=== PATIENT | female | born 1990 | race Caucasian/White ===

== ENCOUNTER 2020-06-05 09:30 | Outpatient (RCR) | payer SELFPAY ==
[2020-01-02 10:21] VITALS: BMI 21.9
--- NOTE | 2020-06-26 11:27 | HP.PT.NRP ---
SLADE Montes AARON was seen in my office for initial evaluation on . The following Plan of Care was established for this patient: This patient was last seen in our office . Pertinent comments regarding their Physical therapy will appear below: Self pay -dn- dc chart At this point I will be discontinuing this patient from physical therapy. I would be happy to see this patient again in the future if found appropriate by the physician. Thank you! JEZ ChenT
== END 2020-06-05 19:00 | disposition home or self-care (01) ==
LOC: PT 09:30
DX: R69 Illness, unspecified (principal)

== ENCOUNTER 2023-10-19 13:30 | Outpatient (RCR) | payer SELFPAY ==
--- NOTE | 2023-07-14 08:49 | HP.PT.NRP ---
Patient Information Patient Information: SLADE WALKER was seen in my office for initial evaluation on . The following Plan of Care was established for this patient: Last Seen Last Seen: This patient was last seen in our office . Pertinent comments regarding their Physical therapy will appear below: Dry needling d/c At this point I will be discontinuing this patient from physical therapy. I would be happy to see this patient again in the future if found appropriate by the physician. Thank you! JEZ ChenT
== END 2023-10-19 19:00 | disposition home or self-care (01) ==
LOC: PT 13:30
DX: G43.909 Migraine, unspecified, not intractable, without status migrainosus (principal)

== ENCOUNTER 2024-01-12 12:00 | Outpatient (RCR) | payer SELFPAY | END 2024-01-12 19:00 | disposition home or self-care (01) | LOC: PT 12:00 | PROVIDERS: PCP Internal Medicine | DX: Z00.00 Encounter for general adult medical examination without abnormal findings (principal) ==

== ENCOUNTER 2024-01-26 05:57 | Day surgery (SDC) | payer SELFPAY ==
[2024-01-26] VITALS (16 sets, daily range): BP systolic 95–110; BP diastolic 56–70; PULSE 60–83; RESP 16; TEMP 36.6–37.6; O2SAT 94–100; BMI 20.9
[2024-01-26] MEDS: Lactated Ringers 1,000 ML 15 ML IV (06:35)
[2024-01-26 06:36] LABS: Internal QC Validated? YES +Cl - CLEAR BKGD; Pregnancy, Urine Negative Negative
--- NOTE | 2024-01-26 07:17 | PCM.PRE.AN2 ---
ASA Classification* ASA Classification ASA Classification: 2 Assessment & Plan Anesthesia* Anesthesia Assessment Anesthesia Assessment: Discussed sedation and/or anesthesia options, risks, benefits, and alternatives with patient/parents/legal guardian/POA. Questions invited. The patient/parents/legal guardian/POA seems to understand and agrees to proceed with anesthesia plan. Reviewed the physical assessment, medical history, allergy history and patient home medications list prior to surgery/procedure/anesthetic and documented any changes. Performed airway and anesthesia risk assessments. 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 When Was Last Pacemaker Check QUESTION #4 FULL TEXT: You/Your Family Experience fever (hyperthermia) with Anesthesia Last Oral Intake Last Oral intake: Last Oral Intake NPO since Meds taken in AM with sips of water? Meds patient instructed to take am of surgery PONV PONV - chamber worker: PONV - chamber worker Female Yes 12/30/23 13:20 HX of Motion Sickness Yes 12/30/23 13:20 HX of N/V After Surgery Yes 12/30/23 13:20 Non-Smoker Yes 12/30/23 13:20 Duration of Surgery greater Yes 12/30/23 13:20 than 60 minutes Number of Risk Factors 5 12/30/23 13:20 PONV Score Severe Risk 12/30/23 13:20 Height & Weight Height & Weight: Anesthesia: Height & Weight Height 5 ft 6 in 01/26/24 06:22 Weight: 59 kg 01/26/24 06:22 Body Mass Index (BMI) 20.9 01/26/24 06:22 Respiratory Assessment Respiratory Assessment - chamber worker: Respiratory Tract Infection Hx - chamber worker Hx Respiratory Tract Infection No 12/30/23 13:20 STOP Sleep Apnea STOP Sleep Apnea - chamber worker: STOP Sleep Apnea - chamber worker Hx Hypertension No 12/30/23 13:20 Hx Sleep Apnea No 12/30/23 13:20 CPAP BIPAP Do you snore loudly (louder No 12/30/23 13:20 than talking or can be heard Do you often feel tired/ No 12/30/23 13:20 fatigued/ sleepy during daytime? Has anyone observed you stop No 12/30/23 13:20 breathing during sleep? STOP Results Negative 12/30/23 13:20 QUESTION #5 FULL TEXT : Do you snore loudly (louder than talking or can be heard through closed doors)? 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 Specify any problems Hx of Preganancy in last 3 No 12/30/23 13:20 Months Nurse Filling Out Transfusion VLEHNANCY 12/30/23 13:20 & Questions: Date: 12/30/23 12/30/23 13:20 Time: 13:33 12/30/23 13:20 Patient unable to answer at this time (ie. confused, unrespo /Reproduction History /Reproductive History - chamber worker: /Reproductive Hx- chamber worker Hx Now No 12/30/23 13:20 Gestational Age (in weeks): EDC: Hx Hx Para Hx Section SAB No 12/30/23 13:20 Active Medications Active Medications: Current Medications Generic Name Dose Route Start Last Admin Trade Name Freq PRN Reason Stop Dose Admin Epinephrine HCl 30 ml 01/26/24 07:15 Epinephrine Nasal 0.1% 30 Ml Bottle NASAL PREOP SHIRLENE Cefazolin Sodium 2 gm/ Sodium 110 mls @ 150 mls/hr 01/26/24 07:30 Chloride IV 01/26/24 08:13 PREOP ONE Lactated Ringer's 1,000 mls @ 15 mls/hr 01/26/24 06:15 01/26/24 06:35 IV 15 mls/hr .Q48H SHIRLENE Administration PFSH Medical History MTHFR gene mutation ADHD Anxiety Hepatitis Migraine headache Dietary restriction Non-smoker History of echocardiogram History of back problems History of autoimmune disease Varicose veins during , antepartum Liver disease Hypoglycemia Bilateral headaches Home Medications ?Medication ?Instructions ?Recorded ?Last Taken ?Type azathioprine 50 mg tablet (Imuran) 50 mg PO QDAY 02/20/18 Unknown History cholecalciferol (vitamin D3) 25 5,000 unit PO DAILY 09/27/23 Unknown History mcg (1,000 unit) capsule lactobacillus combination no.9 4 4,000 mmu cells PO DAILY 09/27/23 Unknown History billion cell capsule (Adult 50 Plus Probiotic) magnesium 200 mg tablet 200 mg PO DAILY 09/27/23 Unknown History milk thistle 150 mg capsule 750 mg PO DAILY 09/27/23 Unknown History collagen (bovine) 100 % topical 1 applic topical DAILY 12/07/23 Unknown History powder HORMONE [id number] 1 cap PO DAILY 12/30/23 Unknown History EXTRACT hdxnsbvd-9-EOX-lemon balm xt 3 tab PO BID PRN 12/30/23 Unknown History vitamin B complex 1 cap PO DAILY 12/30/23 Unknown History cephalexin 500 mg capsule 500 mg PO BID #14 caps 01/11/24 01/25/24 Rx Allergy/AdvReac Type Severity Reaction Status Date / Time corn Allergy Mild Other Verified 01/26/24 06:21 egg Allergy Mild Other Verified 01/26/24 06:21 lactase (From Dairy Aid) Allergy Mild Other Verified 01/26/24 06:21 nut - unspecified (nuts) Allergy Mild Other Verified 01/26/24 06:21 gluten Allergy Abd Verified 01/26/24 06:21 cramps/diarrhea Family History Mother Asthma Cervical cancer Sister Asthma Cervical cancer Grandfather Colon cancer Depression Skin cancer Other CVA (cerebral vascular accident) Heart disease Surgical History History of liver biopsy [place] teeth extracted Social History Smoking Status: Never smoker alcohol intake: never substance use type: does not use what type of physical activity do you participate in: walking, aerobics and weight training frequency: 5-6 times per week additional social history: denies vaping, denies marijuana use, denies edibles, denies aspirin use, uses ibuprofen as needed Review of Systems (Anesthesia) ROS Narrative System reviewed and no additional complaints, except as documented.
--- NOTE | 2024-01-26 07:18 | PCM.HP.BLA ---
History and Physical Date of Admission: 01/26/24 The patient is examined. There are no changes to the H&P dated 01/06/24. Informed consent was obtained. She presents for cosmetic bilateral breast reduction. Assessment & Plan Assessment/Plan (1) Encounter for cosmetic surgery: (2) Breast hypertrophy: PLAN: Plan For bilateral breast reduction
--- NOTE | 2024-01-26 07:30 | BR_PTH ---
PATIENT: SLADE WALKER LOC: [facility] [place] U[place][id number] AGE/SX: 33/F ROOM: RE01/26/[address]: Dr. Magnolia Jamil MD : 1990 BED: DIS: 01/26/2024 SPEC #: [id number] RECD: 01/26/24 13:23 STATUS: LUPE HANDJax #: [id number] PRECIOUS: 01/26/24 07:[address]: Magnolia Jamil DEPT: SURGICAL PATHOLOGY RECD BY: Antwan Harrell ENTERED: 01/26/24 13:40 SP TYPE: MAMOPLASTY OTHR DR: Dr. Rose Sun MD Tissues: A - Right breast, NOS B - Left breast, NOS Procedures: Surgery Specimen Level IV HEADER OPERATION: Bilateral breast reduction PRE-OP DIAGNOSIS: Breast hypertrophy and ptosis TISSUE SUBMITTED: A- Right breast tissue (106 gm), B- Left breast tissue (100gm) MICROSCOPIC DIAGNOSIS A. Right breast, breast reduction mammoplasty: Fragments of benign breast tissue (106gm). Skin- no pathologic diagnosis. B. Left breast tissue, breast reduction mammoplasty: Fragments of benign breast tissue (100gm). Skin- no pathologic diagnosis. ZION/ 01/30/2024 MICROSCOPIC DESCRIPTION Slides are reviewed. GROSS DESCRIPTION A - Received in fixative is one container labeled with the patient's name and designated right breast tissue. The specimen consists of multiple pieces of fibroadipose tissue with a few of the pieces showing carter-white skin measuring in aggregate 14.0 x 11.0 x 3.0 cm. Weighed in OR at 106gm. No skin lesion is identified. Sections reveal yellow adipose cut surfaces mixed with focal fibrous areas. No mass lesion is identified. Hvac Maintenance Technician sections are submitted in six cassettes. Cassette 1 contains the skin piece. B - Received in fixative is one container labeled with the patient's name and designated left breast tissue. The specimen consists of multiple pieces of fibroadipose tissue with a few of the pieces showing carter-white skin measuring in aggregate 13.0 x 12.0 x 3.0 cm. Weighed in OR at 100gm. No skin lesion is identified. Sections reveal yellow adipose cut surfaces mixed with focal fibrous areas. No mass lesion is identified. Hvac Maintenance Technician sections are submitted in six cassettes. Cassette 1 contains the skin piece. / ZION: 01/27/2024 TC:5 CPT:67023b9
[2024-01-26] MEDS: Cefazolin 2 GM in 0.9% Normal Saline (100mL Bag) 100 ML IV (07:35)
[2024-01-26] MEDS: Methylene Blue 1% 100 MG/10 ML VIAL (08:12)
[2024-01-26] MEDS: EPINEPHrine Nasal 0.1% 30 ML Bottle NASAL (08:12)
[2024-01-26] MEDS: Gentamicin 80 MG/2 ML Vial (08:12)
[2024-01-26] MEDS: Bupivacaine 0.25% 30 ML Vial (12:01)
--- NOTE | 2024-01-26 12:13 | EX.PCM.DISCH ---
Discharge Instructions Dressing / Incision Additional Dressing/Incision Instructions:: Follow the instructions given in the office. Follow Up Care Please Follow Up With: Magnolia Jamil MD When: In 1 week Test Results: Test results from this visit will be discussed in further detail at your follow-up appointment, if applicable. Discharge Plan Admission Attending Provider: Magnolia Jamil Primary Care Provider: Rose Sun Instructions Print Language: Citizen Of [place] Discharge Orders/Prescriptions Prescriptions: No Action azathioprine [Imuran] 50 mg tablet 50 mg PO QDAY magnesium 200 mg tablet 200 mg PO DAILY milk thistle 150 mg capsule 750 mg PO DAILY Rx Instructions: give with meal/snack cholecalciferol (vitamin D3) 25 mcg (1,000 unit) capsule 5,000 unit PO DAILY Adult 50 Plus Probiotic 4 billion cell capsule 4,000 mmu cells PO DAILY collagen (bovine) 100 % powder 1 applic topical DAILY Patient Comments: POWDER MIXED WITH WATER-NOT FOR A DRESSING 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 Magnolia Jamil Basic Metabolic Profile (BMP) (Routine) Timeframe: 20240106 Facility: [facility] [place] - Location: Laboratory Ordered By: Dr. Magnolia Jamil CBC-Complete Blood Cnt No Diff (Routine) Timeframe: 20240106 Facility: [facility] [place] - Location: Laboratory Ordered By: Dr. Magnolia Jamil Liver Profile (Routine) Timeframe: 20240106 Facility: [facility] [place] - Location: Laboratory Ordered By: Dr. Chito Medley Prothrombin Time w/INR (Routine) Timeframe: 20240106 Facility: [facility] [place] - Location: Laboratory Ordered By: Dr. Magnolia Jamil Referrals / Follow Up: Rose Sun MD [Primary Care Provider] - Disposition Disposition (needs filled in before D/C Order can be placed): Home, Self Care
--- NOTE | 2024-01-26 12:15 | PCM.POST.ANE ---
Anesthesia: Postop Eval I Current Vital Signs Temperature: 97.9 F Pulse Rate: 80 Blood Pressure: 105/60 Respiratory Rate: 16 Pulse Ox: 95 Oxygen Delivery Method: Room Air Assessment Airway patent: Yes Spontaneous unlabored respirations: Yes Mental status: Awake and Calm nausea: No Vomiting: No Anesthesia Complication: No Fluid Hydration Crystalloid volume administer (ml): 1,600 Total IV fluid infused: 1,600 Progress Note Anesthesia document: Postop Eval 1 completed: Yes
--- NOTE | 2024-01-26 12:18 | OP.PCM_ITS ---
Problems Associated Problem List Diagnoses (1) Encounter for cosmetic surgery: (2) Breast hypertrophy: Report of Operation Date of Procedure: 01/26/24 Pre-Operative Diagnosis: Breast hypertrophy and ptosis; elective cosmetic surgery Post-Operative Diagnosis: Same Surgery/Procedure Performed:: Bilateral breast reduction (right-106 g; left?100 g) Surgeon: Magnolia Jamil tandem operator: CLARENCE DAVENPORTcustomer service professional Type of Anesthesia: General Specimen's removed: Breast tissue Drains: None Estimated Blood Loss (mL): 30 cc Description of Procedure: The patient presents for elective breast reduction. The procedure been thoroughly reviewed with the patient including the expected pre-, intra-, postoperative course. The potential risk and complications of surgery have been reviewed which include but are not exclusive of bleeding, infection, pain, numb ness, asymmetry, scar tissue, skin necrosis, the need for further surgery, inability to breast-feed, DVT, and even . She is marked in the preop holding area prior to surgery. The patient is brought to the operating room and placed under general anesthesia in the supine position. Care is taken to pad all pressure points, insert a Mackenzie catheter, sequential compression stockings, and a warming blanket. She is prepped and draped in the usual sterile fashion. We initially began by incising all the incisions. Following this, the pedicle area is de-epithelialized. The medial and lateral at the inferior aspects of the breast are then removed using argon coagulation. Following this, the pedicle was from the upper flap. The upper flap is then dissected cephalad allowing room to accommodate the pedicle. The pedicle is then trimmed in order to allow it to comfortably fit beneath the upper flap. The wound is irrigated with antibiotic solution and checked for hemostasis which is controlled with cautery. The breast is then infolded and tacked together using silk suture and skin clips. With a satisfactory size and shape noted, would begin to close the incisions. Vicryl sutures were used to initially tacked the incisions together. The incisions were then approximated in 3 layers using a 3 oh STRATAFIX suture. Approximately 4 cm above the inframammary crease, the nipple areola is brought out through an opening. It is tacked into position with interrupted nylon suture. Further refinement the closure is done with a strata fix suture in a subcuticular fashion. The identical procedure was performed on the opposite side. The patient is periodically checked for size and symmetry. The wounds are then dressed with Xeroform and fluff gauze. She is placed in a surgery bra. She tolerated the procedure well was taken to the recovery area in an awake and stable condition. Needle and sponge counts are correct. Complications None Admit VTE Documentation VTE Mechan Device Prophylaxis: SCD's
--- NOTE | 2024-01-26 13:28 | POSTOPAN2_ITS ---
Anesthesia Postop Eval I Sum Postop Eval Completion status Anesthesia document: Postop Eval 1 completed: Yes Anesthesia Postop Eval I Summary Anesthesia Postop Eval I Summary: Anesthesia Postop Eval I: Assessment Summary Airway patent Yes 01/26/24 12:16 [email or web address] Spontaneous unlabored Yes 01/26/24 12:16 ENVELOPE [email or web address] respirations Mental status Awake,Calm 01/26/24 12:16 ENVELOPE [email or web address] nausea No 01/26/24 12:16 ENVELOPE [email or web address].SCHR Vomiting No 01/26/24 12:16 [facility] Anest[facility] Postop Eval I: Fluid Summary Crystalloid volume administer 1,600 01/26/24 12:16 ENVELOPE [email or web address].SCHR (ml) Colloids volume administered ( ml) Blood Product volume administered (ml) Total IV fluid infused 1,600 01/26/24 12:16 [facility] SEALER.[facility] Anesthesia Postop Eval I: Summary Notes Anesthesia Complication No 01/26/24 12:16 [facility] SEALER.[facility] An[facility] Complication Comment: Post-operative progress note Anesthesia: Postop Eval II Evaluation Mental status: Awake Pain Level: 0 nausea: No Vomiting: No
--- NOTE | 2024-01-26 13:28 | PCM.POSTANE2 ---
Anesthesia Postop Eval I Sum Postop Eval Completion status Anesthesia document: Postop Eval 1 completed: Yes Anesthesia Postop Eval I Summary Anesthesia Postop Eval I Summary: Anesthesia Postop Eval I: Assessment Summary Airway patent Yes 01/26/24 12:16 DIRECTOR OF MARKET ANALYSIS.[email or web address] Spontaneous unlabored Yes 01/26/24 12:16 DIRECTOR OF MARKET ANALYSIS.SCHR respirations Mental status Awake,Calm 01/26/24 12:16 DIRECTOR OF MARKET ANALYSIS.SCHR nausea No 01/26/24 12:16 DIRECTOR OF MARKET ANALYSIS.SCHR Vomiting No 01/26/24 12:16 [facility] Anesthesia Postop Eval I: Fluid Summary Crystalloid volume administer 1,600 01/26/24 12:16 DIRECTOR OF MARKET ANALYSIS.SCHR (ml) Colloids volume administered ( ml) Blood Product volume administered (ml) Total IV fluid infused 1,600 01/26/24 12:16 DIRECT[facility] OF MARKET ANALYSIS.[facility] Anesthesia Postop Eval I: Summary Notes Anesthesia Complication No 01/26/24 12:16 DIRECT[facility] OF MARKET ANALYSIS.[facility] Anesthesia Complication Comment: Post-operative progress note Anesthesia: Postop Eval II Evaluation Mental status: Awake Pain Level: 0 nausea: No Vomiting: No
== END 2024-01-26 16:53 | disposition home or self-care (01) ==
LOC: SDC 06:02 → AC 06:04
PROVIDERS: Anesthesiology; PCP Internal Medicine; Referring Provider Plastic Surgery; Visit Provider Plastic Surgery
PROC: 0H0U0ZZ Alteration of Left Breast, Open Approach (ICD-10-PCS; CPT 19318; principal; 2024-01-26 07:15)
DX: N62 Hypertrophy of breast (principal); N64.81 Ptosis of breast
CPT/HCPCS: 19318; 00402; 81025; 88305; J7120; J2405

== ENCOUNTER 2024-05-03 14:28 | Outpatient (RCR) | payer SELFPAY | END 2024-05-03 19:00 | disposition home or self-care (01) | LOC: PT 14:28 | PROVIDERS: PCP Internal Medicine | DX: Z00.00 Encounter for general adult medical examination without abnormal findings (principal) ==

== ENCOUNTER 2024-11-08 14:30 | Outpatient (RCR) | payer SELFPAY | END 2024-11-08 19:00 | disposition home or self-care (01) | LOC: PT 14:30 | PROVIDERS: PCP Internal Medicine | DX: Z00.00 Encounter for general adult medical examination without abnormal findings (principal) ==